=== PATIENT | male | born 1940 | race Caucasian/White ===

== ENCOUNTER → 2020-04-19 | Outpatient (CLI) | payer MEDICARE ==
[~2020-04-19] MED LIST: ASPI81CH; DOK100 M2 PO; DOXA1 PO; LISI20 PO; NAPR220; OXYC5 PO; TAMSULOSIN HCL0.4 M1 PO
[2020-04-19 20:21] LABS: Bacteria Many /hpf; Red Blood Cells, Urine 50-100 /hpf (0-2); Squamous Epithelial Cells Not Seen /hpf (Few); White Blood Cells, Urine 25-50 /hpf (0-5)
== END | disposition home or self-care (01) ==
LOC: LAB 20:01 → LAB SHORT 20:01
PROVIDERS: Nurse Practitioner
DX: N13.9 Obstructive and reflux uropathy, unspecified (principal)
CPT/HCPCS: 81015; 87086

== ENCOUNTER 2020-07-21 12:12 | Inpatient (IN) | payer MEDICARE ==
[~2020-07-21] VITALS: Ht 172.7 cm; Wt 100.9 kg
[~2020-07-21 12:12] MED LIST changes: -DOK100 M2 PO; -DOXA1 PO; -LISI20 PO; -OXYC5 PO; -TAMSULOSIN HCL0.4 M1 PO
[2020-07-21 13:23] LABS: BASOPHILS ABSOLUTE AUTO 0.04 K/mm3 (0.00-0.23); BASOPHILS PERCENT AUTO 0 % (0-2); EOSINOPHILS ABSOLUTE AUTO 0.02 K/mm3 (0.00-0.68); EOSINOPHILS PERCENT AUTO 0 % (0-6); Hematocrit 38.9 % (37.0-53.0); Hemoglobin 11.7 g/dL (13.5-17.5); IMMATURE GRAN ABSOLUTE AUTO 0.22 K/mm3 (0.00-0.10); IMMATURE GRAN PERCENT AUTO 1 % (0-1); LYMPHOCYTES ABSOLUTE AUTO 0.72 K/mm3 (0.84-5.20); LYMPHOCYTES PERCENT AUTO 4 % (21-46); MONOCYTES PERCENT AUTO 4 % (4-13); Mean Corpuscular HGB 19.5 pg (26.0-34.0); Mean Corpuscular HGB Conc 30.1 g/dL (31.5-36.5); Mean Corpuscular Volume 65 fL (80-100); NEUTROPHILS ABSOLUTE AUTO 16.86 K/mm3 (1.96-9.15); NEUTROPHILS PERCENT AUTO 91 % (41-73); NRBC ABSOLUTE 0.17 K/mm3 (0.00-0.02); NRBC Auto 0.9 /100 WBC (0.0-0.2); Platelet Count 220 K/mm3 (150-400); RDW Coefficient Variation 18.6 % (11.7-14.2); RDW Standard Deviation 40.6 fL (35.1-46.3); Red Blood Cell Count 6.01 M/mm3 (4.30-5.90); White Blood Cell Count 18.56 K/mm3 (4.00-11.30)
[2020-07-21 14:01] LABS: Albumin, Blood 2.4 g/dL (3.4-5.0); Albumin/Globulin Ratio 0.6 (0.8-1.8); Bilirubin, Total 2.1 mg/dL (0.1-1.0); Bun/Creatinine Ratio 41.2 (12.0-20.0); Calcium, Blood 8.8 mg/dL (8.5-10.1); Creatinine, Blood 2.04 mg/dL (0.60-1.20); Globulin, Blood 4.1 g/dL (2.2-4.0); Total Protein, Blood 6.5 g/dL (6.4-8.2); Troponin I 6.94 ng/mL (0.000-0.040)
[2020-07-21 14:16] LABS: Creatine Kinase MB 13.5 ng/mL (0.0-3.6); Creatine Kinase MB Index 0.9 (0.0-4.0)
[2020-07-21 15:02] LABS: Influenza A, PCR NEGATIVE (NEGATIVE); Influenza B, PCR NEGATIVE (NEGATIVE); Resp Syncytial Virus, PCR NEGATIVE (NEGATIVE); SARS-Cov-2 (COVID-19) PCR, MMC NEGATIVE (NEGATIVE)
[2020-07-21] MEDS ORDERED: TAMSULOSIN HCL0.4 M1 PO (15:37)
[2020-07-21] MEDS ORDERED: LISI20 PO (15:37)
[2020-07-21] MEDS ORDERED: DOXA1 PO (15:37)
[2020-07-21] MEDS ORDERED: DOK100 M2 PO (15:38)
[2020-07-21 16:15] LABS: Source, Urine Catheter
[2020-07-21 16:20] LABS: Appearance, Urine Cloudy (Clear); Bilirubin, Urine Neg (Neg); Blood, Urine 5+ (Neg); Color, Urine Amber (P-Yellow); Glucose Qualitative, Urine Neg (Neg); Ketones, Urine 1+ (Neg); Leukocyte Esterase, Urine 3+ (Neg); Nitrite, Urine Pos (Neg); Protein, Urine 3+ (Neg); Specific Gravity, Urine 1.015 (1.003-1.022); Urobilinogen, Urine 1+ (Normal)
[2020-07-21 16:25] LABS: Bacteria Many /hpf; Squamous Epithelial Cells Not Seen /hpf (Few); White Blood Cells, Urine TNTC /hpf (0-5)
--- NOTE | 2020-07-21 18:55 | NUR ---
PT ARRIVED FROM THE ER VIA [facility], PT CONFUSED, TALKING ABOUT ANTS ON THE TREES, ATTEMPTED TO ORIENT PT TO ROOM AND CALL SYSTEM, PT HAS A LARGE 10CM X 10CM WOUND COVERED WITH BROWN ESCHAR TO HIS LEFT HIP/THIGH AREA, PICTURE TAKEN, WILL REPORT TO NOC SHIFT
--- NOTE | 2020-07-22 04:01 | NUR ---
FAMILY CONTACT: SON ZACH: [phone]
--- NOTE | 2020-07-22 04:06 | NUR ---
PT T/F TO ICU 16 AT 0400. OUTSOLES CHANNEL OPENER UNAVAILABLE TO GIVE REPORT AT THIS TIME, MESSAGE LEFT.
--- NOTE | 2020-07-22 04:31 | NUR ---
LATE ENTRY FOR 07/21/20 AT 2030. CALL PLACED TO HOSPITALIST DUE TO UNRESPONSIVENESS. PT OPENING EYES ONLY SLIGHTLY IN RESPONSE TO VERBAL STIMULI AND STERNAL RUB. THIS LASTED ABOUT 15 MINUTES. PT THEN WIDE AWAKE AND SPEAKING TO STAFF. A/OX1-2. PT NOTED TO HAVE +2 EDEMA TO BLE. +1 EDEMA TO ABD. LSCTA. IV FLUIDS INFUSING. SPOKE W/ KATE ANDERSON, ORDER TO CONT FLUIDS ORDERED.
--- NOTE | 2020-07-22 04:44 | NUR ---
[employer] DOCUMENTATION FOR 07/21 @ 2134: TELE MONITOR CALLED STATING PT IN SVT. SVT SUSTAINED. P[employer] C[employer]TER CALLED. SVT SELF RESOLVED AFTER 15 MIN. PT ASYMPTOMATIC DURING EVENT ASIDE FROM SOME NOTED SOB. ALERT AND TALKING W/ RESPONDERS. [employer] DOCUMENTATION FOR 07/22 @ 0330: PT FOUND TO BE UNRESPONSIVE, OPENING EYES VERY SLIGHTLY IN RESPONSE TO VERBAL STIMULI AND STERNAL RUB. BP 82/43. CBG 98. PT T/F TO ICU AT 0400.
[2020-07-22 04:49] LABS: BASOPHILS ABSOLUTE AUTO 0.04 K/mm3 (0.00-0.23); BASOPHILS PERCENT AUTO 0 % (0-2); EOSINOPHILS PERCENT AUTO 0 % (0-6); Hematocrit 37.9 % (37.0-53.0); Hemoglobin 10.9 g/dL (13.5-17.5); IMMATURE GRAN ABSOLUTE AUTO 0.34 K/mm3 (0.00-0.10); IMMATURE GRAN PERCENT AUTO 2 % (0-1); LYMPHOCYTES ABSOLUTE AUTO 0.52 K/mm3 (0.84-5.20); LYMPHOCYTES PERCENT AUTO 3 % (21-46); MONOCYTES PERCENT AUTO 4 % (4-13); Mean Corpuscular HGB 19.4 pg (26.0-34.0); Mean Corpuscular HGB Conc 28.8 g/dL (31.5-36.5); Mean Corpuscular Volume 68 fL (80-100); NEUTROPHILS ABSOLUTE AUTO 14.14 K/mm3 (1.96-9.15); NEUTROPHILS PERCENT AUTO 90 % (41-73); NRBC ABSOLUTE 0.12 K/mm3 (0.00-0.02); NRBC Auto 0.8 /100 WBC (0.0-0.2); Platelet Count 172 K/mm3 (150-400); RDW Coefficient Variation 18.7 % (11.7-14.2); RDW Standard Deviation 43.4 fL (35.1-46.3); Red Blood Cell Count 5.61 M/mm3 (4.30-5.90); White Blood Cell Count 15.74 K/mm3 (4.00-11.30)
[2020-07-22 04:50] LABS: Mean Platelet Volume 9.8 fL (9.1-12.4)
[2020-07-22 05:15] LABS: Source, Urine Catheter
[2020-07-22 05:21] LABS: PCO2 Arterial 57.4 mmHg (35-45); pH Blood Arterial 7.34 (7.35-7.45)
[2020-07-22 05:22] LABS: PO2 Arterial 85.1 mmHg (80-100)
[2020-07-22 05:25] LABS: Albumin, Blood 2.1 g/dL (3.4-5.0); Albumin/Globulin Ratio 0.6 (0.8-1.8); Bilirubin, Total 1.7 mg/dL (0.1-1.0); Bun/Creatinine Ratio 38.9 (12.0-20.0); Calcium, Blood 8.4 mg/dL (8.5-10.1); Creatinine, Blood 1.98 mg/dL (0.60-1.20); Globulin, Blood 3.7 g/dL (2.2-4.0); Potassium, Blood 4.9 mmol/L (3.5-5.5); Total Protein, Blood 5.8 g/dL (6.4-8.2)
[2020-07-22 05:37] LABS: Appearance, Urine Cloudy (Clear); Bilirubin, Urine Neg (Neg); Blood, Urine 5+ (Neg); Color, Urine Yellow (P-Yellow); Glucose Qualitative, Urine Neg (Neg); Ketones, Urine Neg (Neg); Leukocyte Esterase, Urine 3+ (Neg); Nitrite, Urine Pos (Neg); Protein, Urine 3+ (Neg); Urobilinogen, Urine 1+ (Normal)
[2020-07-22 06:00] LABS: Troponin I 3.51 ng/mL (0.000-0.040)
[2020-07-22 06:13] LABS: White Blood Cells, Urine TNTC /hpf (0-5)
[2020-07-22 06:14] LABS: Bacteria Many /hpf; Squamous Epithelial Cells Not Seen /hpf (Few)
[2020-07-22 07:39] LABS: Bun/Creatinine Ratio 41.7 (12.0-20.0); Calcium, Blood 8.3 mg/dL (8.5-10.1); Creatinine, Blood 1.8 mg/dL (0.60-1.20); Potassium, Blood 4.3 mmol/L (3.5-5.5)
--- NOTE | 2020-07-22 07:52 | NUR ---
PT TO ICU 16 VIA HOSPITAL BED WITH BUSINESS ENGLISH INSTRUCTOR ABRAHAM LAMB AND RT, PT UNRESPONSIVE TO PAINFUL AND VERBAL STIMULI, PT ON NRB @ 15L. DR MENENDEZ TO ROOM, PT MEDICATED WITH 10 ETOMIDATE AND 100 ROCURONIUM AND INTUBATED @ 0423, ETT 8.0 25cm @ GUM, OG PLACED AND STAT CHEST XRAY COMPLETE. PT HYPOTENSIVE WITH SBP 70'S-80'S, 1L NS BOLUS ORDERED AND ADMINISTERED, WITH IMPROVED IN BP'S. PT TO IMAGING FOR STAT CT OF HEAD. PT BECAME HYPERTENSIVE WITH SBP 170'S-190'S, REMAINS UNRESPONSIVE, PUPILS EQUAL AND REACTIVE TO LIGHT, DR MENENDEZ NOTIFIED, NO NEW ORDERS. TO PTS ROOM @ APPROX 0630, PT APPEARED TO HAVE TWITCHING MOVEMENTS IN ARMS AND LEGS. PT WAS UNABLE TO SQUEEZE HANDS UPON DIRECTION BUT WAS ABLE TO MOVE FEET AND ANSWER YES/NO QUESTIONS, PT DENIED PAIN. PROPOFOL INITIATED AT THIS TIME. CURRENT VENT SETTINGS AC 16/480 PEEP 5 FIO2 40%, NO COUGH RELFEX. MONITOR SHOWS SINUS RHYTHM WITH HR 70'S-80'S, HYPERTENSION WITH SBP 150'S-160'S. HANSEN PLACED THIS SHIFT, WITH CLOUDY COURTNEY COLORED URINE. UNSTAGEABLE PRESSURE ULCER NOTED TO L HIP, NO DRAINAGE. REPORT GIVEN TO LIZETT KASPER.
--- NOTE | 2020-07-22 08:59 | NUR ---
AM NOTE... ASSUMED CARE OF PT AT 0700. PT IS INTUBATED AND SEDATED WITH VENT SETTINGS AT AC:16/480/5/40% W/O2 SATS>90%. RR EVEN AND UNLABORED IN THE 20'S. L/S COARSE IN THE UPPER LOBES DIM IN THE LOWER LOBES. PT IS IN SR IN THE 60'S-70'S W/OCC PVCs AND PACs. PT HAS 2+ PITTING EDEMA TO HIS BLE, 1+ TO HIS BUE AND GENERALIZED EDEMA TO HIS TORSO. PT'S BP WAS HYPERTENSIVE AT THE START OF THIS SHIFT BUT HE WAS AWAKE ON THE VENT AND VERY ANXIOUS. THE PROPOFOL WAS AT 20MCG/KG/MIN AT THIS TIME, THIS WAS INCREASED TO 30MCG/KG/MIN TO PROVIDE COMFORT AND TO PREVENT SELF EXTUBATION D/T THE PT'S ROCKING HIS HEAD SIDE TO SIDE. PT WAS RESPONDING TO VOICE AND HIS NAME BEING CALLED BY LOOKING TOWARDS THE SOUND BUT WAS UNABLE TO FOLLOW COMMANDS. PT HAS A VERY LARGE PRESSURE ULCER TO HIS LEFT HIP, THIS IS DRY WITH BLACK ESCHAR AND UNSTAGEABLE AT THIS TIME. ABD DRESSING WITH TAPE NOTED TO THE SITE. PT HAS HX OF PROSTATE CA, COUDE HANSEN IS IN PLACE AND DRAINING CLOUDY FOUL SMELLING YELLOW URINE TO GRAVITY. WILL CONTINUE TO MONITOR.
[2020-07-22 13:39] LABS: Bun/Creatinine Ratio 41.3 (12.0-20.0); Calcium, Blood 7.9 mg/dL (8.5-10.1); Creatinine, Blood 1.67 mg/dL (0.60-1.20); Potassium, Blood 3.4 mmol/L (3.5-5.5)
--- NOTE | 2020-07-22 16:54 | NUR ---
PT UPDATE... AT APROX 1430 PT WAS SWITHCED FROM AC ON THE VENT TO SPONTANIOUS, PT'S CURRENT SETTINGS ARE SP:10/30% PT HAS TOLERATED THIS SETTING WELL AND HAS BEEN ABLE TO KEEP HIS O2 SATS >90%. PT IS ON 0.9MCG/KG/MIN OF PRECEDEX D/T ANXIETY. PT'S VS HAVE BEEN STABLE T/O SHIFT. PT'S SON AT THE BEDSIDE UP FROM [facility]. PT'S SON UPDATED ON PT'S CONDITION AND PLAN OF CARE. PER DR. DEVINE THE PLAN IS TO EXTUBATE TOMORROW. WILL CONTINUE TO MONITOR.
--- NOTE | 2020-07-22 18:19 | NUR ---
SHIFT SUMMARY... NO ACUTE NEGATIVE CHANGES NOTED THIS SHIFT. PT'S VS HAVE BEEN STABLE. PT CONTINUES TO BE ON THE VENT WITH PRESSURE SUPPORT SETTINGS AT 14/30% WITH O2 SATS >90%. PT IS ON PRECEDEX AT 1.0MCG/KG/MIN, RESPONDS TO ORAL CARE AND OTHER NOXIOUS STIMULI. PT HAS HAD MINIMAL ORAL AND TRACHIAL SECRETIONS THIS SHIFT. DRESSING CHANGE WAS DONE TO THE PT'S LEFT HIP WOUND WHICH HAS FOUL SMELL MODERATE AMOUNT OF BROWN FLUID WHEEPING FROM THE AREA. HANSEN IS PATENT AND DRAINING FOUL SMELLING CLOUDY YELLOW URINE TO GRAVITY. YEASTY RASH WAS NOTED TO THE PT'S LEFT SCROTAL AREA/GROIN FOLDS. PT IS TO GET 250MLS OF H2O FLUSHES VIA OG TUBE Q6HR PER DR. DEVINE. PT'S SON WAS AT THE BEDSIDE MOST OF THIS SHIFT. WILL CONTINUE TO MONITOR UNTIL REPORT IS GIVEN TO ONCOMING RN.
[2020-07-22] MEDS ORDERED: OXYC5 PO (18:31)
[2020-07-22 19:26] LABS: Bun/Creatinine Ratio 42.3 (12.0-20.0); Calcium, Blood 8.1 mg/dL (8.5-10.1); Creatinine, Blood 1.56 mg/dL (0.60-1.20); Potassium, Blood 3.8 mmol/L (3.5-5.5)
--- NOTE | 2020-07-22 21:11 | NUR ---
ASSUMED CARE AT 1900 PT LAYING IN BED INTUBATED WITH VENT SETTINGS SPONT PS 14, FIO2 30%, TV 350-450; MINIMAL TO NO SECREATIONS NOTED. PT IS RESPONSIVE TO VERBAL STIMULI AND IS ABLE TO FOLLOW DIRECTIONS LIKE OPENING EYES AND MOVING EXTREMITIES; PT IS REDIRECTABLE. HR 50-60'S. SBP 140'S. AFIBRILE. BLE 2+ EDEMA NOTED. OG CLAMPED. HANSEN IN PLACE AND DRAINING TO GRAVITY; OUTPUT IS CLOUDY AND YELLOW WITH SEDIMENT. DRESSING TO LT HIP C/D/I. DRESSING TO RT ELBOW C/D/I. PRECEDEX INFUSING AT 1MCG/KG/HR. SEE SHIFT ASSESSMENT FOR FULL ASSESSMENT.
[2020-07-23 04:35] LABS: Anion Gap 6 mmol/L (6-16); Blood Urea Nitrogen 59 mg/dL (8-24); Bun/Creatinine Ratio 41.8 (12.0-20.0); CO2, Blood 29 mmol/L (21-32); Calcium, Blood 7.8 mg/dL (8.5-10.1); Chloride, Blood 117 mmol/L (98-108); Creatinine, Blood 1.41 mg/dL (0.60-1.20); Glomerular Filtration Rate 51 (60-); Glucose, Blood 95 mg/dL (70-99); Potassium, Blood 4.1 mmol/L (3.5-5.5); Sodium, Blood 152 mmol/L (136-145); Vancomycin, Random 9.8 ug/mL
--- NOTE | 2020-07-23 06:02 | NUR ---
END OF SHIFT SUMMARY PT CONT TO BE INTUBATED WITH VENT SETTINGS SPONT PS 14/5, FIO2 30%; SCANT AMOUNT OF SECREATIONS NOTED. PT IS RESONSIVE TO VERBAL STIMULI, ORAL CARE, AND REPOSITIONING; PT ABLE TO FOLLOW SOME DIRECTION AND OCCATIONALLY ANSWER YES/NO QUESTIONS WITH HEAD NODS. ONCE PT NODDED YES TO PAIN, PRN FENT AVAILABLE, GIVEN, AND HELPFUL BRINGING CPOT FROM 6 TO 0. PRECEDEX INFUSING AT 1 MCG/KG/HR. HR 50-60. SBP 150-170; PRN HYDROLOZINE GIVEN ONCE. OG GLAMPED. HANSEN PATENT AND DRAINING TO GRAVITY. NEW DRESSING APPLIED TO LT HIP PRESSURE ULCER, NEW PICTURE PROVIDED IN CHART; SMALL TO MODERATE AMOUNT OF SEROSANGINEOUS DRAINAGE NOTED. WILL REPORT TO AM RN WHEN AVAILABLE.
--- NOTE | 2020-07-23 07:15 | NUR ---
Assumed care of pt at 0700. Bedside report received from Tegan KASPER. Pt receiving precedex at 1 mcg/kg/hr. Responsive to verbal stimulus. Follows commands. Pulls on restraints, in direction of ETT. 8.0 cm ETT. 26 cm JUAN JOSE. Ventilator settings PS 14/5, 30%. RR 24. Tidal volumes 450-500 mL. SB per monitor, rate 55. SpO2 90% or greater. BP stable. Raymond catheter in place draining clear, yellow urine.
--- NOTE | 2020-07-23 08:39 | NUR ---
Dr Padgett in to see pt. Provider assessed pressure ulcer to L hip. Discussed that black portion of pressure ulcer is changing from hard eschar to soft with drainage. Provider states she will talk to surgery about whether or not debridement is necesasry.
--- NOTE | 2020-07-23 09:26 | NUR ---
Dr Escobedo in to see pt. States to decrease precedex to 0.5 mcg/kg/hr to being evaluating pt for extubation.
--- NOTE | 2020-07-23 10:29 | NUR ---
Pt's son, Darwin, at bedside. States he would like to talk to vocational childcare teacher. Message left for Duy KASPER.
[2020-07-23 12:32] LABS: BASOPHILS ABSOLUTE AUTO 0.02 K/mm3 (0.00-0.23); BASOPHILS PERCENT AUTO 0 % (0-2); EOSINOPHILS ABSOLUTE AUTO 0.06 K/mm3 (0.00-0.68); EOSINOPHILS PERCENT AUTO 1 % (0-6); Hematocrit 33.1 % (37.0-53.0); Hemoglobin 10.4 g/dL (13.5-17.5); IMMATURE GRAN ABSOLUTE AUTO 0.18 K/mm3 (0.00-0.10); IMMATURE GRAN PERCENT AUTO 2 % (0-1); LYMPHOCYTES ABSOLUTE AUTO 1.06 K/mm3 (0.84-5.20); LYMPHOCYTES PERCENT AUTO 11 % (21-46); MONOCYTES ABSOLUTE AUTO 0.66 K/mm3 (0.16-1.47); MONOCYTES PERCENT AUTO 7 % (4-13); Mean Corpuscular HGB 19.4 pg (26.0-34.0); Mean Corpuscular HGB Conc 31.4 g/dL (31.5-36.5); NEUTROPHILS ABSOLUTE AUTO 7.51 K/mm3 (1.96-9.15); NEUTROPHILS PERCENT AUTO 79 % (41-73); NRBC ABSOLUTE 0.03 K/mm3 (0.00-0.02); NRBC Auto 0.3 /100 WBC (0.0-0.2); Platelet Count 138 K/mm3 (150-400); RDW Coefficient Variation 17.9 % (11.7-14.2); RDW Standard Deviation 36.5 fL (35.1-46.3); Red Blood Cell Count 5.36 M/mm3 (4.30-5.90); White Blood Cell Count 9.49 K/mm3 (4.00-11.30)
[2020-07-23 12:56] LABS: Mean Corpuscular Volume 62 fL (80-100)
--- NOTE | 2020-07-23 14:07 | NUR ---
Patient extubated at 1136 by RT Staci. Pt initially required 6 LPM NC, but has since been titrated down to 3 LPM. Pt passed bedside swallow eval. No coughing, choking, or wet vocal quality with thin liquids. Pt A&O x 1. Unclear of where he is, at times and unclear of circumstances that led to hospitalization. Pt was upset when he was NPO but is now pleasant and cooperative with care. Precedex has been off since extubation. Pt's son at bedside before and after extubation. Pt has since stepped away to take care of pt's pets.
--- NOTE | 2020-07-23 17:32 | NUR ---
NOTIFIED DR DEVINE OF HYPOTENSION; NO NEW ORDER, WILL CONTINUE TO MONITOR.
--- NOTE | 2020-07-23 19:27 | NUR ---
SHIFT SUMMARY ASSUMED CARE OF PT AT APPROX 1600. PT ALERT, ORIENTED TO PERSON, FAMILY, FOLLOWING DIRECTIONS, MONTH/YEAR AND EVENT. PT UNSURE OF THE DATE/DAY AND WHERE HE IS. PT EXTUBATED EARLIER TODAY, SPO2 >90% ON 3L O2 VIA NC; LS CLEAR BUT DIM IN BASES. PT DENIES PAIN T/O SHIFT. HYPOTENSIVE/AOFT BP THIS EVENING; NOTIFED DR DEVINE, CONTINUE TO MONITOR; DR DEVINE AT BEDSIDE THIS EVENING, ORDERS TO CONTINUE TO MONITOR. PT STATES "A LITTLE DIZZY" WITH THE HYPOTENSION. OTHER VSS. NO OTHER ACUTE CHANGES NOTED DURING SHIFT. REPORT GIVEN TO ONCOMING RN.
[2020-07-24 03:33] LABS: BASOPHILS ABSOLUTE AUTO 0.05 K/mm3 (0.00-0.23); BASOPHILS PERCENT AUTO 0 % (0-2); EOSINOPHILS ABSOLUTE AUTO 0.06 K/mm3 (0.00-0.68); EOSINOPHILS PERCENT AUTO 1 % (0-6); Hematocrit 34.5 % (37.0-53.0); Hemoglobin 10.2 g/dL (13.5-17.5); IMMATURE GRAN ABSOLUTE AUTO 0.19 K/mm3 (0.00-0.10); IMMATURE GRAN PERCENT AUTO 2 % (0-1); LYMPHOCYTES ABSOLUTE AUTO 1.16 K/mm3 (0.84-5.20); LYMPHOCYTES PERCENT AUTO 10 % (21-46); MONOCYTES ABSOLUTE AUTO 0.72 K/mm3 (0.16-1.47); MONOCYTES PERCENT AUTO 6 % (4-13); Mean Corpuscular HGB 19.2 pg (26.0-34.0); Mean Corpuscular HGB Conc 29.6 g/dL (31.5-36.5); Mean Corpuscular Volume 65 fL (80-100); NEUTROPHILS ABSOLUTE AUTO 10.04 K/mm3 (1.96-9.15); NEUTROPHILS PERCENT AUTO 82 % (41-73); Platelet Count 123 K/mm3 (150-400); RDW Coefficient Variation 18.9 % (11.7-14.2); RDW Standard Deviation 41.5 fL (35.1-46.3); White Blood Cell Count 12.22 K/mm3 (4.00-11.30)
[2020-07-24 03:53] LABS: Albumin, Blood 1.8 g/dL (3.4-5.0); Albumin/Globulin Ratio 0.5 (0.8-1.8); Bilirubin, Total 2.4 mg/dL (0.1-1.0); Bun/Creatinine Ratio 37.4 (12.0-20.0); Creatinine, Blood 1.23 mg/dL (0.60-1.20); Globulin, Blood 3.6 g/dL (2.2-4.0); Potassium, Blood 3.9 mmol/L (3.5-5.5); Total Protein, Blood 5.4 g/dL (6.4-8.2)
--- NOTE | 2020-07-24 04:07 | NUR ---
ASSUMED CARE AT 1900/ CALLING DR DHILLON PT LAYING IN BED AND ALERT/ORIENTED X3-4, SOME REMINDER NEEDED FOR WHAT THE DAY IS AND WHAT TIME OF DAY IT IS; PT ABLE TO MAKE HIS NEEDS KNOWN. AFIBRILE. SPO2 >90% ON 3L NC. HR 60'S. SBP 80'S WITH MAP 60-65; DR DHILLON CALLED AND NOTIFIED, NEW ORDERS FOR 1L BOLUS OF LR FOLLOWED BY LR INFUSING AT 150ML/HR; BP IMPROVED WITH MAP >65. HANSEN PATENT AND DRAINING TO GRAVITY. DRESSING TO LT HIP SHOWS SIGNS OF SMALL DRAINAGE, PLAN TO CHANGE DRESSING THIS SHIFT. SEE SHIFT ASSESSMENT FOR FULL ASSESSMENT.
--- NOTE | 2020-07-24 05:10 | NUR ---
HYPOTENSION PT SBP 80-90'S WITH MAP 58-65. DR MENENDEZ NOTIFIED AND PROVIDED ORDERS FOR 500ML BOLUS OF NS. PROVIDER ALSO NOTIFIED OF PT NOT RECIEVING 2100 DOSE OF MAXIPIME AND STATED TO JUST WAIT AND GIVE THE NEXT SCHEDULED DOSE AT 0900.
--- NOTE | 2020-07-24 06:42 | NUR ---
END OF SHIFT SUMMARY PT IS ALERT/ORIENTED AND ABLE TO MAKE NEEDS KNOWN; PT SLEPT FOR A SHORT WHILE. SPO2 >90% ON 3L NC. AFIBRILE. HR 50-70. SBP 80-100; SEE PREVIOUS NURSE NOTE ADDRESSING HYPOTENSION. HANSEN PATENT AND DRAINING TO GRAVITY. DRESSING TO LT HIP CHANGED, NEW PICTURE IN CHART. LR INFUSING AT 150ML/HR. WILL REPORT TO AM RN WHEN AVAILABLE.
--- NOTE | 2020-07-24 08:00 | NUR ---
ASSUMED CARE RECEIVED REPORT FROM RANJITH LUNDBERG. PT SITTING UP IN BED, AWAKE, SLOW TO RESPOND AND VERY [place]. CALM AND COOPERATIVE. LR INFUSING AT 150 ML/HR, PERIODS OF HYPOTENSION OVERNIGHT, CURRENTLY BP STABLE, MAP > 65. ON 3L NC, SPO2 96%+; AFEBRILE. TACHYPNEIC RR 20-30. HANSEN PATENT AND DRAINING YELLOWISH-ORANGE URINE. BED LOW AND LOCKED. CALL LIGHT WITHIN REACH.
--- NOTE | 2020-07-24 13:04 | NUR ---
UPDATE-SVT X 3 T/O MORNING PT HAS HAD STABLE BP (MAP > 65) AND A HR IN THE 70-80s; DENIED CHEST PAIN AND SOB (AT REST). AT APPROX 1130 THE PT WENT INTO SVT, RATE INTO THE 170-180s, PT DID NOT APPEAR IN DISTRESS, AND ONLY C/O MILD DISCOMFORT IN THE CHEST - HE WAS REQUIRING MORE OXYGEN (NC TURNED UP TO 5L). BP AT 1122 WAS 123/57, AND AT 1131 80/67. DR. DEVINE TO ROOM, ATTEMPTED A FEW VAGAL MANEUVERS WITH NO SUCCESS, ZOLL CONNECTED TO PT. 6 MG OF ADENOSINE GIVEN TO PT INITIALLY, WITH A SUCCESSFUL PAUSE AND RETURN TO SINUS RHYTHM 70-80s, BUT RETURNED TO SVT LESS THAN A MINUTE LATER. 12MG OF ADENOSINE THEN GIVEN WITH SAME RESULTS, [id number] TO SVT (THOUGH WITH 5-10 MINS BETWEEN RUNS THIS TIME). KCL, MG SULFATE, 1L LR BOLUS, METOPROLOL TARTRATE 25 MG (BID), DIGOXIN IV WERE ALL ORDERED DURING THIS DOWN TIME. DURING PTs THIRD RUN OF SVT - HE RECEIVED AN ADDITIONAL 6 MG (TOTAL OF 24 MG) WITH A PAUSE, AND THEN RETURN TO SINUS, AND HAS BEEN SINUS SINCE. 1ST BAG OF KCL INFUSING ALONG WITH MAGNESIUM. 1L LR BOLUS COMPLETED. METOPROLOL AND DIGOXIN ADMINISTERED. PT THOUGH CONFUSED BY EVENTS, MAINTAINED HIS MENTATION, BLOOD PRESSURE STABLE WITH SINUS RHYTHM RATE 60s, AND PT DENIES CHEST PAIN/PRESSURE, AND SOB. PT SLEEPY, AND CURRENTLY RESTING, WITH ZOLL CONNECTED TO PADS FOR TIME BEING. NO CARDIOVERSIONS HAVE BEEN ADMINISTERED. DR. ESCOBAR HAD CAME TO THE BEDSIDE AND EVALUATED PT - HE ORDERED METORPOLOL AND DIGOXIN AND REQUESTED TO BE CALLED WITH ANY CHANGES - NO OTHER INTERVENTIONS AT THIS TIME PER HIS SERVICE. PT EDUCATED ON SVT/EVENT - STATES HE UNDERSTAND, BUT WILL CONTINUE TO ASSESS AND MONITOR PT.
--- NOTE | 2020-07-24 19:19 | NUR ---
END OF SHIFT PT HAS BEEN IN SINUS RHYTHM SINCE HIS SVT EVENTS, RATE 50s. HE HAD A BRIEF MOMENT THAT LOOKED LIKE HE WAS GOING BACK IN SVT (FOR THE FOURTH TIME TODAY), BUT ENDED UP STOPPING AND SLOWING BACK DOWN TO HIS SINUS RHYTHM. BLOOD PRESSURE HAS BEEN STABLE SINCE BEING BACK IN SINUS RHYTHM. PT DENIES PAIN, SOB, AND NAUSEA ALL DAY, THOUGH WHEN REPOSITIONING DOES GRIMACE AND MOANS WITH HIS LEFT HIP. DR. EVANS STATED THAT DR. BAKER WILL LOOK AT HIP ULCER FOR POSSIBLE DEBRIEDMENT, PT TO BE NPO AFTER MIDNIGHT. SON CAME BY DURING THE AFTERNOON (AFTER THE RUNS OF SVT) AND NOTICED A DECLINE IN THE PTs LOC - FROM YESTERDAY. PT DID APPEAR MORE LETHARGIC THAN THIS MORNING, AND VERY SLEEPY (AFTER BEING WIDE AWAKE ALL MORNING AND THE MAJORITY OF LAST NIGHT). PT CONTINUES TO STRUGGLE PUTTING HIS THOUGHTS TO WORDS, AND WAS HAVING DIFFICULTY HAVING A CONVERSATION WITH HIS SON AND THIS RN. PT FINALLY WENT TO SLEEP FOR A FEW HOURS. NO AGITATION OR ANXIETY NOTICED IN PT. BED LOW AND LOCKED. CALL LIGHT WITHIN REACH (HAS NOT BEEN USING TODAY). REPORTED OFF TO RANJITH RODRIGUEZ.
[2020-07-24 20:37] LABS: Magnesium, Blood 2.2 mg/dL (1.6-2.4); Potassium, Blood 4.8 mmol/L (3.5-5.5)
--- NOTE | 2020-07-24 21:46 | NUR ---
ASSUMED PBE EVALUATED BY SPEECH THERAPY.T CARE AT 1915 FROM RANJITH DODD PT ALERT AND ORIENTED; ABLE TO MAKE NEEDS KNOWN. SLOW TO RESPOND, BUT ABLE TO UNDERSTAND DIRECTION. FORGETFUL AT TIMES AND NEEDS REORIENTATION/CUEING. RIGHT SIDED WEAKNESS MORE PROMINENT TODAY COMPARED TO YESTERDAY PER OBSERVATION OF PCT. HOWEVER, PT DOES NOT HAVE ANY FACIAL DROOP OR SLURRED SPEECH NOTED. ABLE TO LIFT BILATERAL ARMS UP EQUALLY, WELL DEMONSTRATED BILATERAL AND EQUAL STRENGTH TO LE'S. PT HASN'T SLEPT A FULL NIGHTS SLEEP SINCE ADMIT; THEREFORE, [facility] CALLED WITH ORDERS FOR ZYPREXA 10MG PO. PT NOTED TO HAVE A WEAK COUGH WITH POOR PROTECTION OF AIRWAY. DURING ADMINISTRATION OF MEDICATIONS, PT NOTED TO HAVE POSSIBLY ASPIRATED WITH A DIFFICULT TIME CLEARING SECRETIONS. HE BEGAN COUGHING FOR AN EXTENDED AMOUNT OF TIME BEFORE HE WAS ABLE TO FINALLY CLEAR HIS SECRETIONS. THEREFORE, WILL CHANGE LIQUIDS TO THICKENED LIQUIDS UNTIL PT CAN BE EVALUATED BY SPEECH THERAPY. OXYGEN SATURATIONS REMAINED 99% ON 4L OF OXYGEN. LUNG SOUNDS NOTED TO HAVE CRACKLES AND EXPIRATORY WHEEZES NOTED. PT BECOMES SOB WITH MINIMAL EXERTION; DOES NOT TOLERATE LYING FLAT. ABDOMEN IS ROUND AND FIRM WITH TYMPANIC BOWEL TONES NOTED. PT IS SINUS FRANCO WITH HR 50'S. BP'S STABLE. HANSEN CATHETER IS PATENT AND DRAINING CLOUDY, YELLOW URINE WITH SEDIMENT NOTED TO GRAVITY. PT IS VERY EDEMATOUS T/O. CHANGED DRESSING TO LEFT HIP PRESSURE ULCER; CLEANSED WITH WOUND CLEANSER, PATTED DRY, APPLIED MEPITEL TO WOUND BED AND COVERED WITH FOAM DRESSING. WOUND BED HAS 100% SLOUGH NOTED; EDGES TO WOUND ARE RED AND EXCORIATED; THEREFORE, SKIN PREP APPLIED TO THOSE AREAS. CALL LIGHT IS WITHIN REACH; PT ABLE TO MAKE HIS NEEDS KNOWN. WILL CONTINUE TO MONITOR.
--- NOTE | 2020-07-25 02:06 | NUR ---
UPDATE OXYGEN SATURATIONS DROPPED TO 87%. UPON ENTERING ROOM, PT HAD 4L OF OXYGEN VIA NC IN HIS NARES, BUT HE WAS BREATHING THROUGH HIS MOUTH. PLACED OXYGEN IN MOUTH AND TURNED OXYGEN UP TO 8L. PT CONTINUED TO DROP HIS OXYGEN SATURATIONS DOWN TO 77%. CHARGE NURSE CALLED TO GRAB NON-REBREATHER. IN THE MEANTIME, PT WAS BAGGED AT 15L OF OXYGEN UNTIL NON-REBREATHER WAS BROUGHT TO ROOM. PT IS CURRENTLY ON 10L VIA NON-REBREATHER MASK. RT AWARE AND PLAN IS TO CHANGE PT TO A VENTURI MASK SINCE HE IS A MOUTH BREATHER. PT IS AROUSABLE, BUT CONFUSED TO PLACE AND TIME. HR REMAINS IN THE 50'S. BP STABLE, SEE FLOWSHEET.
[2020-07-25 03:29] LABS: BASOPHILS ABSOLUTE AUTO 0.09 K/mm3 (0.00-0.23); BASOPHILS PERCENT AUTO 1 % (0-2); EOSINOPHILS ABSOLUTE AUTO 0.05 K/mm3 (0.00-0.68); EOSINOPHILS PERCENT AUTO 0 % (0-6); Hematocrit 41.2 % (37.0-53.0); Hemoglobin 11.4 g/dL (13.5-17.5); IMMATURE GRAN ABSOLUTE AUTO 0.71 K/mm3 (0.00-0.10); IMMATURE GRAN PERCENT AUTO 5 % (0-1); LYMPHOCYTES ABSOLUTE AUTO 1.18 K/mm3 (0.84-5.20); LYMPHOCYTES PERCENT AUTO 8 % (21-46); MONOCYTES ABSOLUTE AUTO 0.68 K/mm3 (0.16-1.47); MONOCYTES PERCENT AUTO 5 % (4-13); Mean Corpuscular HGB 19.3 pg (26.0-34.0); Mean Corpuscular HGB Conc 27.7 g/dL (31.5-36.5); NEUTROPHILS ABSOLUTE AUTO 12.16 K/mm3 (1.96-9.15); NEUTROPHILS PERCENT AUTO 82 % (41-73); NRBC ABSOLUTE 0.02 K/mm3 (0.00-0.02); NRBC Auto 0.1 /100 WBC (0.0-0.2); Platelet Count 119 K/mm3 (150-400); RDW Coefficient Variation 20.4 % (11.7-14.2); RDW Standard Deviation 48.5 fL (35.1-46.3); Red Blood Cell Count 5.91 M/mm3 (4.30-5.90); White Blood Cell Count 14.87 K/mm3 (4.00-11.30)
[2020-07-25 03:32] LABS: Mean Corpuscular Volume 70 fL (80-100)
[2020-07-25 03:45] LABS: BAND PERCENT MAN 4 % (0-8); BASOPHILS PERCENT MAN 0 % (0-2); EOSINOPHILS PERCENT MAN 0 % (0-6); LYMPHOCYTES ABSOLUTE MAN 1.33 K/mm3 (0.84-5.20); LYMPHOCYTES PERCENT MAN 9 % (21-46); METAMYELOCYTE ABSOLUTE MAN 0.44 K/mm3 (0.00-0.00); METAMYELOCYTE PERCENT MAN 3 % (0-0); MONOCYTES ABSOLUTE MAN 0.14 K/mm3 (0.16-1.47); MONOCYTES PERCENT MAN 1 % (4-13); NEUTROPHILS ABSOLUTE MAN 12.93 K/mm3 (1.96-9.15); SEG NEUTROPHILS PERCENT MAN 83 % (41-73); TOTAL CELLS COUNTED 100
[2020-07-25 03:46] LABS: Albumin, Blood 1.8 g/dL (3.4-5.0); Albumin/Globulin Ratio 0.5 (0.8-1.8); Bilirubin, Total 1.3 mg/dL (0.1-1.0); Bun/Creatinine Ratio 31.5 (12.0-20.0); Calcium, Blood 8.1 mg/dL (8.5-10.1); Creatinine, Blood 1.27 mg/dL (0.60-1.20); Globulin, Blood 3.9 g/dL (2.2-4.0); Total Protein, Blood 5.7 g/dL (6.4-8.2)
--- NOTE | 2020-07-25 04:03 | NUR ---
REASSESSMENT PT IS LESS RESPONSIVE THAN HE WAS AT THE BEGINNING OF SHIFT. HE IS ABLE TO OPEN EYES, BUT DOES NOT RESPOND WHEN SPOKEN TO. HE IS NOTED TO GROAN AND MAKE SOUNDS, BUT HAS NOT FORMED ANY WORDS. WHEN ASKED IF HE WAS IN PAIN, HE WAS NOT ABLE TO RESPOND. BP'S ARE SOFTER NOW THAN THEY WERE EARLIER WELL; THEREFORE, WILL MONITOR MORE FREQUENTLY. HR REMAINS FRANCO IN THE 50'S. PT REPOSITIONED FOR COMFORT.
--- NOTE | 2020-07-25 05:56 | NUR ---
END OF SHIFT SUMMARY PT REMAINED SOMNOLENT T/O SHIFT. WILL OPEN EYES TO VERBAL COMMANDS; HOWEVER, DOES NOT REPSPOND WITH WORDS, HE JUST GROANS AND MAKES SOUNDS. HE REMAINS WITH VENTURI MASK AT 8L AND 40% FIO2; BIOX >90%. LUNG SOUNDS REMAIN WITH CRACKLES TO LOWER LOBES AND RML. SINUS FRANCO WITH BBB; HR 50'S. PT HAS REMAINED NPO T/O SHIFT WITH ST ORDERS TO EVAL AND TX D/T CHOKING WITH MED ADMINISTRATION LAST NIGHT. DRESSING REMAINS CDI TO LEFT HIP. PT TURNED Q2 HOURS FOR COMFORT WHILE REMAINING OFF THAT LEFT HIP. PT IS SALINE LOCKED AT THIS TIME. VANCO RESTARTED LAST NIGHT D/T POSITIVE BLOOD CULTURES OF GRAM POSITIVE COCCI IN CLUSTERS. WILL CONTINUE TO MONITOR UNTIL REPORT IS HANDED OFF TO ONCOMING RN.
--- NOTE | 2020-07-25 09:35 | NUR ---
RECEIVED REPORT FROM RANJITH RODRIGUEZ THIS AM. PT CONTINUES SOMNOLENT, RESPONDS BRIEFLY TO LOUD STIMULI OR BEING MOVED, BUT QUICKLY FALLS BACK TO SLEEP. PT NOT ALERT OR INTERACTING WITH STAFF IN ROOM. ORDER IS BEING PLACED FOR ABG.
[2020-07-25 09:48] LABS: PCO2 Arterial 89 mmHg (35-45); PO2 Arterial 66.5 mmHg (80-100); pH Blood Arterial 7.17 (7.35-7.45)
--- NOTE | 2020-07-25 09:58 | NUR ---
UPDATE: ABG ORDERED AND DRAWN. SEE CHART FOR RESULTS. RT TO ROOM TO PLACE PT ON BIPAP.
--- NOTE | 2020-07-25 11:22 | NUR ---
UPDATE: PT TOLERATING BIPAP WELL. PT MORE ALERT AND ANSWERING QUESTIONS. DR BAKER TO AND FROM ROOM TO ASSESS PT'S ULCER, STATES HE WILL RETURN TOMORROW TO EXPLORE OPTION OF SURGICAL DEBRIDEMENT D/TO PT BEING PLACED ON BIPAP.
--- NOTE | 2020-07-25 13:20 | NUR ---
Pt seen this am. Repiratory therapy working wiht pt to tolerate bipap. Review of pt with charge nurse, bedside RN and hospitalist. Called son th review care and discuss paln for going forward. Discussed hospice plan and transiton to comfort care if he declines any further. Son states he is looking for placement and plan is hospice. Son states he is a but not service connected. Advised will update home care coordinator and [facility]. Sent a paliative consult to the [facility] team for hosp[facility] care. The called back and will see if he qualifies for some hospice benefits. Also asked them to look for record of biopsies. pt kps score 30 to 20%
--- NOTE | 2020-07-25 14:36 | NUR ---
therputic time with patient very delirious feels he is in some kind of equipment. Slowly reviewed where he is at. he does not recall fall opened window and reviewed the news with him.
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
--- NOTE | 2020-07-25 21:56 | NUR ---
Care Assumed 1899 Pt A/O to being in [place] unable to state being at hospital or date/year. Pt on SD when care assumed, 3 L, SPO2 > 90%. Pt denies having pain at the time. Grimaces during turns but when asked if in pain nods head no and states "No, I'm ok." Able to follow commands, calm/cooperative with care. Answers questions with few words and slow to responds. L HIP wound dressing C/D/I. Able to move all extrems. VSS. HR low 60's to 59. Lopressor 25 mg held due to low HR and patient unable to pass swallow. BP stable. NSR. Pt placed back on BIPAP, 16/6, FIO2 30%, RATE OF 20. Tolerating well, spo2 > 92%. Pt educated on importance of being on BIPAP and nods yes to understanding.
--- NOTE | 2020-07-25 23:55 | NUR ---
Update Pt more awake and talking. Asking why he is in the hospital, states the year as 2020, and states being [facility]. Thick white oral secreations suctioned and oral care provieded. When asked if he remembers falling at home, pt states "I tripped and fell in my bedroom." Easily agitated, asking for water, oral swabs provided. BIPAP restarted 19/10, FIO2 35%, SPO2 > 90%. NSR. HR 60's. BP 151/64. Pt is anxious and asking for nurse to not leave the room. Will continue to monitor.
[2020-07-26 04:24] LABS: BASOPHILS ABSOLUTE AUTO 0.07 K/mm3 (0.00-0.23); BASOPHILS PERCENT AUTO 1 % (0-2); EOSINOPHILS ABSOLUTE AUTO 0.14 K/mm3 (0.00-0.68); EOSINOPHILS PERCENT AUTO 1 % (0-6); Hematocrit 36.1 % (37.0-53.0); Hemoglobin 10.4 g/dL (13.5-17.5); IMMATURE GRAN PERCENT AUTO 2 % (0-1); LYMPHOCYTES ABSOLUTE AUTO 1.02 K/mm3 (0.84-5.20); LYMPHOCYTES PERCENT AUTO 7 % (21-46); MONOCYTES ABSOLUTE AUTO 0.68 K/mm3 (0.16-1.47); MONOCYTES PERCENT AUTO 5 % (4-13); Mean Corpuscular HGB 19.1 pg (26.0-34.0); Mean Corpuscular HGB Conc 28.8 g/dL (31.5-36.5); Mean Corpuscular Volume 66 fL (80-100); NEUTROPHILS ABSOLUTE AUTO 11.71 K/mm3 (1.96-9.15); NEUTROPHILS PERCENT AUTO 84 % (41-73); Platelet Count 113 K/mm3 (150-400); RDW Coefficient Variation 19.3 % (11.7-14.2); RDW Standard Deviation 43.3 fL (35.1-46.3); Red Blood Cell Count 5.45 M/mm3 (4.30-5.90); White Blood Cell Count 13.92 K/mm3 (4.00-11.30)
[2020-07-26 04:37] LABS: Bun/Creatinine Ratio 27.9 (12.0-20.0); Creatinine, Blood 1.9 mg/dL (0.60-1.20); Potassium, Blood 4.9 mmol/L (3.5-5.5)
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
[2020-07-26 10:24] LABS: Base Excess Venous 5.6 mmol/L; PCO2 Venous 60.5 mmHg (38-42); PO2 Venous 59.6 mmHg (38-42); pH Blood Venous 7.33 (7.34-7.37)
--- NOTE | 2020-07-26 11:41 | NUR ---
AM NOTE... ASSUMED CARE OF PT AT 0700. PT IS A&Ox2 PT IS ABLE TO STATE HIS NAME, AND THE MONTH BUT THOUGHT HE WAS AT HOME. HE WAS ALSO MAKING NONSENSICAL ANSWERS TO QUESTIONS AT TIMES WELL. PT'S VS STABLE AT THIS TIME, HE IS ON BIPAP AT 16/6 AND 45% FIO2. BIPAP WAS TAKEN OFF AND PT WAS PLACED ON 2L NC WITH O2 SATS >90%. L/S CLEAR T/O DIM IN THE BASES. PT IS IN SR/SB 50'S-60'S. BP SLIGHTLY HYPERTENSIVE BUT STABLE. PT HAS 3+ PITTING EDEMA TO HIS BLE AND BUE. BT PRESENT AND HYPOACTIVE, ABD IS SLIGHTLY FIRM BUT NONTENDER TO PALP. HANSEN IS PATENT AND DRAINING CLOUDY YELLOW URINE TO GRAVITY. WILL CONTINUE TO MONITOR.
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
--- NOTE | 2020-07-26 11:46 | NUR ---
Report received from Palliative Care RN who saw pt yesterday and also ST who attempted visit this am. Pt has had a very difficult evening with resp status, not wanting to use his bipap and with confusion/extreme agitation. ST requests assist with s/s management. I case conferenced with pt's RN & CM further and evaled pt in ICU briefly. He had been given 0.5 mg Ativan IV, approx 1/2 hr ago, after Dr echeverria, as a one time order. Pt was quiet, drowsy, in room with lights out. Per RN and my conversation, I would not disturb him now that he is finally getting some rest and relief from agiation. EMR reviewed in detail prior to my call to son, Yajaira, who is driving home to [place] at this time. I was able to reach Yajaira, and he states he has the time and is safe to talk at this time. I reviewed past 24 hours of s/s and care attempted for his dad. He states he felt like his dad was failing and doing poorly but he heard Drs and staff say, "He's doing fine. We will do this and it will be better". I reviewed in detail past two days of 's progross notes and therapy notes with Yajaira. He feels his dad's stage IV cancer and respiratory failure has impaired his quality of life for a long time and that even if he survives these infections, etc that his dad's quality of life would not be remotely satisfactory to his dad. He states he does not want his dad to suffer, or to have us doing procedures, interventions that his dad is saying he does not want. Options for care reviewed and Yajaira familiar with comfort care from conversation with Palliative care yesterday. Yajaira requests we transition his dad to comfort care now. He does not want any medications given that do not contribute directly to his comfort including antibiotics. He does not want his "suffering prolonged". I explained all aspects of comfort care/EOL care here in the hospital, possible transfer out of ICU, transfer to another facility or place with hospice care there if pt stable for transfer. WE discussed pt's NPO status and aspriation precautions. Yajaira would like small bites and sips of fluid offered but for us to maintain aspiration precautions to try to prevent choking. I assured him we would do this. He's aware pt may experience aspiration anyway but wants him to be able to have some PO intake for comfort and pleasure. Update to RN, CM and Dr after my conversation with yajaira and VO for comfort care orders obtained and entered. Yajaira will be back in the area after work tomorrow rhys. We will keep him updated daily and he was given our office number to call with any questions. Yajaira would like to be updated at any time major changes are noted by phone [phone]. His sister, pt's kaiden, was scheduled to visit today also. Landy Baker [phone]. Plan for comfort care visit later this afternoon to assess for s/s management and support to pt/staff.
--- NOTE | 2020-07-26 13:44 | NUR ---
Met Pt. in bed resting and is much better today,encouraged pt. and offered prayers.
--- NOTE | 2020-07-26 15:10 | NUR ---
PAL CARE COMFORT CARE VISIT in ICU prior to transfer to [place] [address]. Pt sleeping and appears comfortable. He grimaced and pulled foot away when I was assessing 3-4+ pitting edema of laina feet. Pt appears much more relaxed than earlier this am. He did not wake with soft conversation or touch. RN gathering his personal belongings and room items to transfer with pt. She reports pt having less anxiety and agitation this afternoon. He was medicated once for pain. Bipap d/c'd by and pt has O2 on per nc. Breathing is even and sl labored, with pt lying flat for transport. T/c to son, to give update on s/s and report on room change. He is contemplating returning to [facility] instead of tomorrow. His sister from OT coming to visit and he will let her and other sister Landy know of room change. Informed that Family/pt allowed four visitors on comfort care during any hours they are available now that pt is on comfort care. Son very appreciative and will update his sisters. Plan daily comfort care visits for support and s/s management.
--- NOTE | 2020-07-26 15:44 | NUR ---
PT TRANSFER... PT TRANSFER TO MEDICAL FLOOR, REPORT GIVEN TO MEDICAL FLOOR RN STEPHANIE. ALL OF PT'S BELONGINGS PACKED AND SENT WITH THE PT. PT'S FAMILY WAS NOTIFIED PER RENÉE DEAL RN IN PALLIATIVE CARE.
--- NOTE | 2020-07-26 16:51 | NUR ---
PT ARRIVED TO THE MEDICAL FLOOR FROM THE ICU VIA GURNY, THE PT IS ALERT DROWSY AT THIS TIME, OPENS EYES TO PAINFUL STIMULI, THE PT APPEARS TO BE BREATHING EASILY AT REST ON O2, THE PT WAS ORIENTED TO THE CALL SYSTEM, CALL LIGHT IN REACH, WILL CONTINUE TO MONITOR AND ASSESS FOR CHANGES, THE PT WAS MADE COMFORT CARE TODAY
--- NOTE | 2020-07-26 18:44 | NUR ---
PTS FAMILY AT THE BEDSIDE, ATTEMPTED TO WAKE THE PT FOR DINNER, PT WAS DROWSY NOT ABLE TO EAT AT THIS TIME, MEDICATED THE PT FOR PAIN, PT IS IN GREAT DEAL OF PAIN WITH ANY REPOSITIONING, CALL LIGHT IN REACH
--- NOTE | 2020-07-26 19:20 | NUR ---
ASSUMPTION OF CARE. PATIENT IS SLEEPING HE JUST GOT ROXINAL. LUNG SOUNDS ARE CLEAR AT THE MOMENT IN THE UPPER ANTERIOR AREA. ON 2 LITERS OF O2 FOR COMFORT. BRUISING SCATTERED ALL OVER THE BODY. HE IS VERY SWOLLEN IN THE UPPER AND LOWER EXTREMITIES. DRESSING TO THE LEFT HIP IS INTACT. CATHETER IS PATENT WITH CLEAR YELLOW URINE. CALL LIGHT IS IN REACH. WILL CONTINUE TO PROVIDE COMFORT CARE.
--- NOTE | 2020-07-26 22:01 | NUR ---
PATIENT RESTING COMFORTABLY, CATH CARE PROVIDED. POLISHER BALANCE SCREWHEAD ALREADY REPOSTIONED HIM. HE IS NON-RESPONSIVE, RESP ARE EVEN AND UNLABORED. WILL CONTINUE TO MONITOR.
--- NOTE | 2020-07-27 06:31 | NUR ---
SHIFT SUMMARY: COMFORT CARE. HAS BEEN NON-RESPONSIVE ALL EVENING. RESP HAVE BEEN EVEN AND UNLABORED. IS STARTING TO DEVELOP SOME SECREATIONS. ORAL CARE WAS PROVIDED. DRESSING TO HIP REMAINED INTAKE, REPOSITIONED EVERY 2 HOURS. NO SIGNS OF PAIN NOTED. NO MEDICATIONS NEEDED. WILL PASS ON TO DAY SHIFT. CALL LIGHT IS IN REACH.
--- NOTE | 2020-07-27 07:44 | NUR ---
ASSUMED CARE OF PT- BEDSIDE REPORT COMPLETED WITH NIGHT RN GRACIELA. PER REPORT PT HAS BEEN NONRESPONSIVE SINCE TRANSFERING TO MEDICAL FLOOR. PT HAS NO S&S OF DISTRESS NOTED AT THIS TIME, SOME SLIGHT SECRETIONS NOTED IN PT RESPIRATIONS. PT HAS BEEN REPOSITIONED Q2 PER REPORT BED SORE ON THE LEFT HIP. DRESSING C/D/I AT THIS TIME WILL CTM.
--- NOTE | 2020-07-27 07:47 | NUR ---
PT RESP E/U NO S&S OF DISTRESS, NO OUTWARD SIGNS OF PAIN NOTED, HOB ELEVATED TO HELP WITH SECRETIONS. MAY NEED ADDITIONAL PHARMACOLOGIC INTERVENTIONS SHORTLY WILL CTM.
--- NOTE | 2020-07-27 09:13 | NUR ---
PT REPOSITIONED RIGHT BACK POSSITION. DRESSING AND PAPER CHUX CHANGED D/T BEING SOILED. SOME GRIMACE NOTED WITH THE TURN AND POSSITION BUT AFTER PT SEEMS RELAXED, RESP E/U SOME SECRETIONS NOTED WHEN LAYING FLAT, LESS NOTICABLE WITH HOB ELEVATED. NO S&S OF DISTRESS AT THIS TIME. WILL CTM.
--- NOTE | 2020-07-27 12:17 | NUR ---
PT GRIMMACING AND APPEARS UNCOMFORTABLE REPOSSITIONED AND MEDICATED WITH ROXANOL. WILL CTM.
--- NOTE | 2020-07-27 12:52 | NUR ---
Pal Care comfort care visit Pt had just been turned and repositioned by RN and TANK ERECTOR. Furrowed brow noted and soft groaning. RN had already assessed that it was time for rx per eMar for pain and gave 10mg of Roxanol sl. Pt has not been anxious or agitated per RN. She states he has not woken and been verbal or responsive since transfer from ICU yest afternoon. Minimal urine output in moyer drainage bag since shift change this am. Pt is edematous t/o with evidence of weeping of arms and legs. He has O2 on via nc and this does not seem to bother pt at all. t/c to son, Darwin, with an update. He had been in to see his dad and will be returning later today. I spoke with JOSÉ MIGUEL re: dc plans per son's questions and request. CM updated that son will be returning later today. Pt appears vastly more comfortable with no agitation noted today, as compared to yesterday am. Pal Care to cont to follow for s/s management and support.
--- NOTE | 2020-07-27 14:30 | NUR ---
PT RESPIRATIONS SEEMED TO BE MORE LABORED AND BROW FURROWED AFTER REPOSSITIONING MEDICATED WITH ROXANOL.
[2020-07-27 15:36] LABS: Influenza A, PCR NEGATIVE (NEGATIVE); Influenza B, PCR NEGATIVE (NEGATIVE); Resp Syncytial Virus, PCR NEGATIVE (NEGATIVE); SARS-Cov-2 (COVID-19) PCR, MMC NEGATIVE (NEGATIVE)
--- NOTE | 2020-07-27 16:43 | NUR ---
DISCHARGE NOTE- PT DISCHARGED TO [facility], CALLED [facility] TO GIVE TELEPHONE REPORT AT THE TIME OF DISCHARGE. PT REMAINS UNRESPONSIVE LAST PAIN MEDS GIVEN AT 1440.
--- NOTE | 2020-07-27 17:56 | NUR ---
Spiritual care note: Mr. Collins appeared to be peacefully sleeping when I visited. No family present, breaths even and relaxed. Provided prayer for peaceful transition. He was being d/c this afternoon.
== END 2020-07-27 16:42 | DRG 871 ==
LOC: ER 12:12 → ICUW 17:44 → MEDS 17:44 → ICUW 07-22 04:07 → MEDS 07-26 15:44
PROVIDERS: Emergency Medicine; Internal Medicine; Internal Medicine Cardiovascular Disease; Internal Medicine Critical Care Medicine; ADMIT Internal Medicine
PROC: 0BH17EZ Insertion of Endotracheal Airway into Trachea, Via Natural or Artificial Opening (ICD-10-PCS; principal; 2020-07-22)
PROC: 5A1945Z Respiratory Ventilation, 24-96 Consecutive Hours (ICD-10-PCS; 2020-07-22)
PROC: 5A09457 Assistance with Respiratory Ventilation, 24-96 Consecutive Hours, Continuous Positive Airway Pressure (ICD-10-PCS; 2020-07-24)
DX: A41.9 Sepsis, unspecified organism (principal); J18.9 Pneumonia, unspecified organism; I21.4 Non-ST elevation (NSTEMI) myocardial infarction; J96.22 Acute and chronic respiratory failure with hypercapnia; G92 Toxic encephalopathy; N17.9 Acute kidney failure, unspecified; M62.82 Rhabdomyolysis; M84.48XA Pathological fracture, other site, initial encounter for fracture; I47.1 Supraventricular tachycardia; E87.0 Hyperosmolality and hypernatremia; J44.0 Chronic obstructive pulmonary disease with (acute) lower respiratory infection; C79.51 Secondary malignant neoplasm of bone; C78.7 Secondary malignant neoplasm of liver and intrahepatic bile duct; J91.8 Pleural effusion in other conditions classified elsewhere; E87.1 Hypo-osmolality and hyponatremia; N39.0 Urinary tract infection, site not specified; L97.129 Non-pressure chronic ulcer of left thigh with unspecified severity; E87.2 Acidosis; Z51.5 Encounter for palliative care; Z66 Do not resuscitate; N40.0 Benign prostatic hyperplasia without lower urinary tract symptoms; C61 Malignant neoplasm of prostate; I10 Essential (primary) hypertension; E86.0 Dehydration; I25.10 Atherosclerotic heart disease of native coronary artery without angina pectoris; Z20.822 Contact with and (suspected) exposure to COVID-19; Z98.42 Cataract extraction status, left eye; Z88.4 Allergy status to anesthetic agent; Z79.899 Other long term (current) drug therapy
CPT/HCPCS: 0241U; 31500; 36415; 36600; 70450; 71045; 72100; 72125; 76705; 80048; 80053; 80202; 81001; 82140; 82550; 82553; 82803; 82947; 83605; 83690; 83735; 83880; 84132; 84145; 84484; 85025; 87040; 87070; 87077; 87086; 87186; 87205; 93005; 93010; 93306; 94002; 94003; 94660; 96361; 96365; 99285-25; A9270; C9113; J0153; J0692; J0696; J1160; J1650; J1956; J2060; J2310; J2704; J3010; J3370; J3475; J3480; J7030; J7040; J7050; J7070; J7120